=== PATIENT | female | born 1940 | race Caucasian/White ===

== ENCOUNTER 2016-07-21 10:29 | Emergency (ER) | payer OTHER ==
[~2016-07-21] VITALS: Ht 157.5 cm; Wt 85.4 kg
[~2016-07-21 10:29] MED LIST: ALBUTEROL SULF8.5 GM IH; CALCITRATE200 MG PO; CALCITRIOL0.25 MCG PO; CALCIUM CITRAT1 EAC8 PO; CLOPIDOGREL75 MG PO; FLEXERIL10 MG PO; HYDROCHLOROTH12.5 M3 PO; K-DUR20 MEQ PO; LEVAQUIN750 MG PO; LEVOTHROID112 MCG PO; MUCINEX1200 MG PO; PREVACID SOLUTA30 MG PO; PROVENTIL2.5 MG/3 M IH; PULMICORT0.5 MG/21 IH; RHINOCORT AQUA8.6 G1 NS; SLOW-MAG,MAG DE64 MG PO; SYNTHROID100 MCG PO; TAMIFLU75 MG PO; ULTRAM50 MG PO; [UNRECOGNIZED DRUG - OTHER] PO
[2016-07-21] MEDS ORDERED: LEVOTHYROXINE88 MCG PO (12:48)
[2016-07-21] MEDS ORDERED: LANSOPRAZOLE30 MG PO (12:48)
[2016-07-21] MEDS ORDERED: HYDROCHLOROTHIA25 MG PO (12:48)
[2016-07-21] MEDS ORDERED: POTASSIUM CHLO20 ME1 PO (12:49)
[2016-07-21 13:34] VITALS: BP 145/89
== END 2016-07-21 13:35 | disposition home or self-care (01) ==
LOC: EME 10:29
DX: T78.40XA Allergy, unspecified, initial encounter (principal); I10 Essential (primary) hypertension; K21.9 Gastro-esophageal reflux disease without esophagitis; Z85.850 Personal history of malignant neoplasm of thyroid; Z93.0 Tracheostomy status
CPT/HCPCS: 94640; 99281; 99284; J1200; J2930; S0028